=== PATIENT | male | born 1995 | race Caucasian/White ===

== ENCOUNTER 2023-07-18 12:00 | Outpatient (CLI) | payer MEDICARE, MEDICAID | END 2023-07-18 12:01 | disposition home or self-care (01) | LOC: MADRAD 12:00 | PROVIDERS: ATTEND Registered Nurse | DX: M54.50 Low back pain, unspecified (principal); M25.551 Pain in right hip; M25.552 Pain in left hip; M54.6 Pain in thoracic spine; M41.9 Scoliosis, unspecified; M43.8X5 Other specified deforming dorsopathies, thoracolumbar region; M50.322 Other cervical disc degeneration at C5-C6 level | CPT/HCPCS: 72040; 72072; 72100 ==

== ENCOUNTER 2023-11-22 11:21 | Outpatient (CLI) | payer MEDICARE, MEDICAID ==
[~2023-11-22 11:21] MED LIST: Iopamidol 370 76% 100 ML VIAL ONE
== END 2023-11-22 11:22 | disposition home or self-care (01) ==
LOC: MADCT 11:21
PROVIDERS: ATTEND Registered Nurse
DX: R10.31 Right lower quadrant pain (principal); K40.90 Unilateral inguinal hernia, without obstruction or gangrene, not specified as recurrent; M43.06 Spondylolysis, lumbar region; M47.817 Spondylosis without myelopathy or radiculopathy, lumbosacral region
CPT/HCPCS: 72193; Q9967